=== PATIENT | female | born 1965 | race Caucasian/White ===

== ENCOUNTER 2021-02-09 16:06 | Emergency (ER) | payer OTHER ==
[~2021-02-09] VITALS: Ht 170.2 cm; Wt 102.1 kg
[2021-02-09] MEDS ORDERED: HYDROCODON-ACE1 EAC7 PO ×2 (18:43→19:55)
[2021-02-09] MEDS ORDERED: IBUPROFEN 800800 M1 PO ×2 (18:45→19:50)
[2021-02-09 18:54] VITALS: BP 130/85
== END 2021-02-09 18:54 | disposition home or self-care (01) ==
LOC: M.ERS 16:06
DX: S82.002A Unspecified fracture of left patella, initial encounter for closed fracture (principal); W01.0XXA Fall on same level from slipping, tripping and stumbling without subsequent striking against object, initial encounter; Y93.89 Activity, other specified; Y92.89 Other specified places as the place of occurrence of the external cause; Y99.8 Other external cause status